=== PATIENT | female | born 1960 | race African-American/Black ===

== ENCOUNTER 2017-02-27 10:11 | Emergency (ER) | payer MEDICARE, MEDICAID ==
[~2017-02-27] VITALS: Ht 162.6 cm; Wt 80.0 kg
[~2017-02-27 10:11] MED LIST: ACYCLOVIR800 MG PO; ALEVE220 M1 OR; ALEVE220 M1 PO; ASPIRIN325 MG PO; AUGMENTIN875TAB OR; BENZONATATE200 MG PO; CLARITIN10 M1 PO; CLEOCIN VAG2 % VA; COLACE100 MG PO; DIFLUCAN150 MG OR; FLEXERIL5 M1 PO; HYDROCHLOR12.5 MG/CA OR; LISINOP/HCTZ1 TAB PO; LISINOPRIL10 MG PO; LORATADINE10 M1 PO; LORATADINE10 M2 OR; MELOXICAM7.5 MG PO; METROGEL VAG0.75 % VA; MIRALAX3350 NF PO; MUCINEX600 MG PO; NAPROSYN500 MG PO; SILVADENE1 % EX; STOOL SOFTENER100 M1 OR; STOOL SOFTENER100 MG PO; TIMOLOL MAL0.5 % OP; ULTRAM50 M1 PO
[2017-02-27 11:06] VITALS: BP 122/70
[2017-02-27] MEDS ORDERED: BENADRYL 50MG C50 MG PO ×2 (11:06→11:09)
[2017-02-27] MEDS ORDERED: BENADRY2 EX ×2 (11:06→11:09)
== END 2017-02-27 11:10 | disposition home or self-care (01) ==
LOC: ED 10:11
DX: S20.361A Insect bite (nonvenomous) of right front wall of thorax, initial encounter (principal); W57.XXXA Bitten or stung by nonvenomous insect and other nonvenomous arthropods, initial encounter; Y93.9 Activity, unspecified; Y92.9 Unspecified place or not applicable

== ENCOUNTER 2018-08-14 17:35 | Emergency (ER) | payer MEDICARE, MEDICAID ==
[~2018-08-14] VITALS: Ht 162.6 cm; Wt 59.0 kg
[~2018-08-14 17:35] MED LIST changes: +BENADRY2 EX; +BENADRYL 50MG C50 MG PO
[2018-08-14 18:40] VITALS: BP 148/89
== END 2018-08-14 18:40 | disposition home or self-care (01) ==
LOC: ED 17:35
PROC: 2W3UXYZ Immobilization of Right Toe using Other Device (ICD-10-PCS; principal; 2018-08-14)
DX: S90.121A Contusion of right lesser toe(s) without damage to nail, initial encounter (principal); I10 Essential (primary) hypertension; F17.210 Nicotine dependence, cigarettes, uncomplicated; W22.8XXA Striking against or struck by other objects, initial encounter; Y92.009 Unspecified place in unspecified non-institutional (private) residence as the place of occurrence of the external cause

== ENCOUNTER 2022-07-21 14:30 | Emergency (ER) | payer MEDICARE ==
[~2022-07-21] VITALS: Ht 162.6 cm; Wt 58.9 kg
[2022-07-21 15:13] VITALS: BP 179/91
[2022-07-21 15:30] VITALS: BP 127/78
[2022-07-21] MEDS ORDERED: MAXITROL 0.1 %1 SUS OS (15:38)
[2022-07-21 16:43] VITALS: BP 179/91
== END 2022-07-21 16:44 | disposition home or self-care (01) ==
LOC: ED 14:30
DX: H57.12 Ocular pain, left eye (principal); I10 Essential (primary) hypertension; F17.200 Nicotine dependence, unspecified, uncomplicated